=== PATIENT | female | born 1975 | race Caucasian/White ===

== ENCOUNTER → 2018-02-08 | Day surgery (SDC) | payer OTHER ==
[~2018-02-08] VITALS: Ht 154.9 cm; Wt 65.3 kg
--- NOTE | 2018-02-08 12:43 | Operative Report ---
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 Decision was made for excisional biopsy. Patient brought to the operating room after preoperative wire localization was performed and the films were reviewed. 2 g of Ancef was given and the left breast was prepped and draped in a sterile fashion using ChloraPrep. 1% lidocaine mixed Marcaine Was Given and a Curvilinear Incision Was Made in the Periareolar Position. Using the Lighted Retractor, the Wire Was Dissected and Brought into the Incision. The Area of Concern Was Grasped Using an Allis Clamp. Specimen Was Removed and Marked for Orientation Using Margin Map. Intraoperative X-Ray Confirmed the Presence of the Clip in the Specimen. Since Was Adequate and the Deep Tissue Was Approximated Using Interrupted Vicryl Sutures. The Skin Was Closed Using a Running Biosyn Subcuticular Stitch. Airstrips and Sterile Dressings Were Applied and the Patient Was Transferred to the Recovery Room in Satisfactory Condition Having Tolerated the Procedure Well.
--- NOTE | 2018-02-08 17:26 | MAMMOGRAPHY REPORT ---
EXAMINATION: MM NEEDLE LOCALIZATION SPECIMEN FROM THE BREAST, LEFT CLINICAL INDICATION: Specimen radiograph. COMPARISON: Needle localization films from earlier today. TECHNIQUE: Single specimen radiograph was obtained. FINDINGS: The radiograph of the excised surgical specimen shows that the hookwire is delivered intact and the marker clip is identified in the specimen. IMPRESSION: Satisfactory excision of the targeted lesion. These findings were communicated to the surgeon in the OR at the time of specimen radiography.
--- NOTE | 2018-02-11 08:32 | MAMMOGRAPHY REPORT ---
EXAMINATION: US GUIDED NEEDLE LOCALIZATION BREAST, LEFT POST PROCEDURE LEFT DIAGNOSTIC MAMMOGRAM CLINICAL INFORMATION: Preoperative localization of a complex sclerosing lesion with focal papillary features and ductal hyperplasia without atypia found on biopsy of left breast mass at 8:00, 5 cm from the nipple. COMPARISON: Ultrasound guided biopsy and post procedure mammogram dated 12/25/2017. TECHNIQUE NEEDLE LOC: Proper informed consent is obtained from the patient after discussion of the procedure, potential risks and complications, and alternatives including declining the procedure today. Patient was given an opportunity for questions. The patient appeared to understand. The patient consented to the procedure and signed the consent form. GUIDANCE: Ultrasound. APPROACH: Medial. TARGET: A 0.5 x 0.6 x 0.5 cm hypoechoic avascular mass with irregular margins in the 8:00 position, 5 cm from the nipple. ANESTHESIA: 10 mL lidocaine 2 % LOCALIZATION MARKER: Quartics 5 cm needle localization system. The skin was prepped and local anesthesia administered. The needle was positioned and position assessed with mammography. The wire was hooked into position. The patient tolerated the procedure well and had no immediate complication. Diagram was marked for the surgeon. The target is located around the distal thick thin junction of the wire, 3 cm deep to the skin with 10 cm of the wire remaining external to the skin. IMPRESSION: Status post left breast needle localization with wire hooked into position. The target is located around the distal thick thin junction of the wire, 3 cm deep to the skin with 10 cm of the wire remaining external to the skin.
== END ==
LOC: STS 02:22 → CBW.IIU 07:00 → CBW.US 08:30 → CBW.IIU 08:30
DX: N60.82 Other benign mammary dysplasias of left breast (principal); D64.9 Anemia, unspecified; E04.9 Nontoxic goiter, unspecified
CPT/HCPCS: 76942; 77065-LT; 81025; J0690; J2001; J2250; J2405